=== PATIENT | male | born 1985 | race African-American/Black ===

== ENCOUNTER 2016-11-09 10:23 | Emergency (ER) | payer SELFPAY ==
--- NOTE | ~2016-11-09 | CR63 ---
[facility] A Service of [facility] RADIOLOGY TEXT RESULTS PATIENT: RANDALL ALCALA LOCATION: [facility] : [birth year] UNIT #: [id number] AGE: [address]: Nba Monique MD SEX: M ORDER DR: [id number] [facility] [address] [place], [place] [address] [id number] E MR#: [id number] Acc #: [id number] NAME: RANDALL ALCALA : 1985 SEX: M STUDY DATE/TIME: 11/09/2016 11:11 UNIT: [facility] ROOM: STUDY DESCRIPTION: CR Chest 2 View Attending Physician: Nba Monique Referring Physician: Carlos Massey P.A.-C. Ordering Physician: Ed Doctor [id number] [facility] Primary Care Physician: Carlos Massey P.A.-C. MEDICAL IMAGING REPORT This report is preliminary unless electronic signature is present EXAM PA and lateral chest INDICATIONS Chest pain today. Comparison with 12/14/2013 FINDINGS Lungs are well expanded and clear. Heart size is normal. The visualized osseous structures are unremarkable. IMPRESSION Negative chest. Dictated by... Federico Rice M.D. THIS IS AN ELECTRONICALLY VERIFIED REPORT Federico Rice M.D. at 11/10/2016 9:20 AM YVONNE/xiomara TD: 11/09/2016 14:13 JOB #: [id number] MEDICAL IMAGING REPORT Page 1 of 1 COPY
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
== END 2016-11-09 13:45 | disposition home or self-care (01) ==
LOC: CED 10:23
DX: S82.142A Displaced bicondylar fracture of left tibia, initial encounter for closed fracture (principal); S72.052A Unspecified fracture of head of left femur, initial encounter for closed fracture; S82.832A Other fracture of upper and lower end of left fibula, initial encounter for closed fracture; S01.81XA Laceration without foreign body of other part of head, initial encounter; Z23 Encounter for immunization; F17.210 Nicotine dependence, cigarettes, uncomplicated; S13.4XXA Sprain of ligaments of cervical spine, initial encounter; V29.40XA Motorcycle driver injured in collision with unspecified motor vehicles in traffic accident, initial encounter; Y93.89 Activity, other specified; Y92.410 Unspecified street and highway as the place of occurrence of the external cause
CPT/HCPCS: 12001; 12011; 29505; 70450; 71020; 72040; 73562; 73700; 90471; 90715; 99284